=== PATIENT | male | born 1950 | race Caucasian/White ===

== ENCOUNTER → 2024-01-23 10:52 | Outpatient (REF) | payer MEDICARE, OTHER, SELFPAY | LOC: HWRAD 10:52 | PROVIDERS: ATTENDING PHYSICIAN Urology; FAMILY PHYSICIAN Internal Medicine; REFERRING PHYSICIAN Internal Medicine Rheumatology | DX: M81.0 Age-related osteoporosis without current pathological fracture (principal); N20.0 Calculus of kidney; D41.01 Neoplasm of uncertain behavior of right kidney | CPT/HCPCS: 74018; 76775; 77080 ==

== ENCOUNTER 2024-02-02 13:38 | Emergency (ER) | payer MEDICARE, OTHER, SELFPAY ==
[2024-02-02 13:40] VITALS: BP 114/74; BMI 28.0
--- NOTE | 2024-02-02 13:53 | ED.GENMED ---
History of Present Illness
General
Chief Complaint: Fainting/Passed Out
Time Seen by Provider: 02/02/24 13:40
History of Present Illness
History of Present Illness:
73-year-old male with history of hyperlipidemia and chronic bradycardia presenting to the emergency department after syncopal episode. Patient's status post a right third and fourth finger DIP joint fusion at outpatient surgical center this
morning. Patient reports that he got a sedative, as well as local anesthesia. He got home from the surgery, felt cold, sat at the kitchen table while his grabbed him a sweater. He subsequently then had a witnessed syncopal episode. Per
, was out about a minute. Patient notes that he fell out of it for the next 15 minutes. Reports history of a syncopal episode several years ago, was admitted and had extensive workup, thought to be secondary to a vasovagal etiology. Patient
denies any prodromal chest pain or difficulty breathing. He reports that he felt like he was going to pass out, felt very nauseous, and then lost consciousness. No report of any head injury. Does report that he did not sleep very much last night
and has not eaten today. Denies any present chest pain, difficulty breathing, dizziness, lightheadedness, visual changes, fever or recent illness. Per medics, patient was hypotensive and bradycardic on arrival, however bradycardia per patient is
chronic denies additional acute medical complaints
Phy Exam
Physical Exam
Physical Exam:
General: Well-appearing, no clinical signs of dehydration, nontoxic and in no acute distress
HEENT: protecting airway, pupils equal and reactive, extraocular movements intact
Neck: appears supple
CV: Normal heart rate, regular rhythm, no evidence of cyanosis
Resp: No accessory muscle use, no increased work of breathing, lungs clear to auscultation bilaterally
Abd: Soft and non-distended, no tenderness to palpation
Extremities: No deformities, no swelling, no erythema
Neuro: alert, no focal neurologic deficit
: deferred
Rectal: deferred
Psych: Normal affect
Skin: Intact
Course
Orders/Labs/Results
Orders:
Orders
02/02/24 13:45
Electrocardiogram (*1) Urgent
Reason for Study: Chest Pain
EKG- Treatment ONCE
02/02/24 13:52
Complete Blood Count/With Diff Urgent
Comprehensive Metabolic Panel Urgent
Troponin I Urgent
02/02/24 13:53
0.9% Sodium Chloride 1000 ml [Nss] 1,000 ml IV BOLUS
02/02/24 15:12
Tramadol HCl [Ultram] 50 mg PO NOW STA
Abnormal Lab Results
02/02/24
13:52
RBC 4.44 L 10^6/uL
(4.70-6.10)
MCV 98.0 H fL
(80.0-94.0)
MCH 31.1 H pg
(27.0-31.0)
MCHC 31.7 L g/dL
(33.0-37.0)
Absolute Lymphs (auto) 1.0 L 10^3/uL
(1.2-3.4)
Neutrophils % 79.8 H %
(42.2-75.2)
Lymphocytes % 12.5 L %
(20.5-51.1)
Glucose 105 H mg/dl
(70-99)
Total Protein 6.2 L g/dl
(6.3-8.2)
02/02/24 13:52
02/02/24 13:52
Vital Signs
Initial and Last Documented VS:
Initial Vital Signs
Temp Pulse Resp BP Pulse Ox
97.9 F 58 16 114/74 100
02/02/24 13:40 02/02/24 13:40 02/02/24 13:40 02/02/24 13:40 02/02/24 13:40
Last Documented Vital Signs
Temp Pulse Resp BP Pulse Ox
97.9 F 56 16 122/66 99
02/02/24 13:40 02/02/24 15:00 02/02/24 13:40 02/02/24 15:00 02/02/24 15:00
MDM/Problems Addressed
MDM/Problems Addressed:
73-year-old male with history of hyperlipidemia presenting after syncopal episode. Vital signs are normal.
On exam, patient is very well-appearing, awake, alert, oriented. No physical signs of trauma. Unremarkable cardiac and pulmonary exam. No focal neurologic deficits. Do suspect possible vasovagal quality to patient's symptoms, notes that did not
sleep very much last night due to surgical procedure this morning. In addition he has not eaten anything at all today, and had sedated medications prior to arrival. Vital signs at this time are stable. Will screen with EKG. will also screen with
laboratory analysis including electrolyte panel, troponin. Will start patient IV fluids in the setting of volume depletion. Will continue to closely monitor.
15:15 - Labs are unremarkable. Reassessed patient remains hemodynamically stable. EKG is nonischemic, no arrhythmia. Patient reports that he is feeling better. At this time feel that he is stable for discharge, however with close interval
follow-up primary care doctor. Advised continued rest and oral hydration. Return precautions discussed and patient verbalized understanding
*EKG
Interpreted by ED Provider?: Yes
EKG Intrepretation Date: 02/02/24
EKG Intrepretation Time: 15:15
Interpretation: normal
Comparison EKG: no comparison EKG present
Heart Rate: 61
Rate: normal
Rhythm: sinus
[place]: normal axis
Interval: normal interval
QRS Pattern: normal QRS
Ischemia: no ischemia
*Critical Care Note
Total Time (30-74mins, 75-104mins- exclusive of procedures): Not Applicable
ED Attending Note
-
Portions of this chart may have been created with voice recognition software.� Occasional wrong word or��sound alike� substitutions may have occurred due to the inherent limitations of voice recognition software.
Discharge Plan
Departure
Patient Disposition: Home (Routine Discharge)
Date of Disposition: 02/02/24
Time of Disposition: 15:13
Patient with high blood pressure during this ER visit?: No
Condition: Good
Discharge Problem:
Syncope
Instructions: Syncope (Fainting) (DC), Vasovagal Response (DC)
Prescriptions:
No Action
gabapentin 600 mg tablet
600 mg PO QID
prednisone 5 mg tablet
5 mg PO DAILY
methotrexate sodium 2.5 mg tablet
2.5 mg PO . DIRECTED
Rx Instructions:
TAKE 2 TABLETS BY MOUTH Friday AND 2 TABS BY MOUTH FRIDAY EVENING EACH WEEK
folic acid 1 mg tablet
1 mg PO DAILY
albuterol sulfate 90 mcg/actuation HFA aerosol inhaler
2 puff INHALATION R Q4 PRN (Reason: sob)
ezetimibe 10 mg tablet
10 mg PO DAILY
rosuvastatin 5 mg tablet
5 mg PO DAILY
fluticasone propion-salmeterol 232-14 mcg/actuation aerosol powdr breath activated
1 inh INHALATION R BID
hydromorphone [Dilaudid] 4 mg tablet
4 mg PO Q6H PRN (Reason: Pain) Qty: 30 0RF
Activity Restrictions/Additional Instructions:
You were seen in the emergency department for a syncopal episode
You were found to have normal laboratory analysis, EKG. We suspect that you had a vasovagal syncopal episode.
Please follow-up closely with your primary care physician.
Return to the emergency department for any worsening of your symptoms, or any development of chest pain, difficulty breathing, abdominal pain with persistent vomiting and inability to tolerate food or liquid by mouth (concern for dehydration),
weakness, headache or confusion, fever greater than 100.4, or any additional symptoms that are concerning to you.
Thank you for choosing [facility].
Interventions
Interventions:
*Risk Screen - Suicide Last Done: 02/02/24 13:40
*General Assessment Last Done: 02/02/24 13:40
*Neglect/Abuse Screening Last Done: 02/02/24 13:40
ED- Fall Risk Assessment Last Done: 02/02/24 13:40
*ED COVID-19 Vaccine History Last Done: 02/02/24 13:40
ED- Cardiac Assessment Last Done: 02/02/24 13:40
ED- Neurological Assessment Last Done: 02/02/24 13:40
Discharge Date and Time
Print Language: HUNGARIAN
[2024-02-02 14:02] LABS: % Basophils 0.3 % (0-2); % Eosinophils 1.2 % (0-6); % Immature Granulocytes 0.3 % (0-0.5); % Lymphocytes 12.5 % (20.5-51.1); % Monocytes 5.9 % (1.7-9.3); % Neutrophils 79.8 % (42.2-75.2); Absolute Eosinophils 0.1 10^3/uL (0-0.7); Absolute Monocytes 0.5 10^3/uL (0.1-0.6); Absolute Neutrophils 6.2 10^3/uL (1.4-6.5); Hematocrit 43.5 % (39.0-52.0); Hemoglobin 13.8 g/dL (13.0-18.0); Mean Corp Hgb Conc. 31.7 g/dL (33.0-37.0); Mean Corpuscular Hgb 31.1 pg (27.0-31.0); Mean Platelet Volume 9.5 fL (7.4-10.4); Nucleated Red Blood Cells % 0 % (-); Platelet Count 157 10^3/uL (130-400); Red Blood Cell Count 4.44 10^6/uL (4.70-6.10); Red Cell Dist. Width 13.6 % (11.5-14.5); White Blood Cell Count 7.8 10^3/uL (4.8-10.8)
[2024-02-02] MEDS: NSS 1000 IV (14:04)
[2024-02-02 14:17] LABS: ALT (SGPT) 25 U/L (0-50); AST (SGOT) 30 U/L (17-59); Albumin 3.9 g/dl (3.5-5.0); Alkaline Phosphatase 52 U/L (38-126); Blood Urea Nitrogen 19 mg/dl (9-20); Calcium 8.8 mg/dl (8.4-10.2); Carbon Dioxide 27 mmol/L (22-30); Chloride 106 mmol/L (98-107); Estimated Creatinine Clearance 86 ml/min; Glucose 105 mg/dl (70-99); Sodium 143 mmol/L (135-145); Total Bilirubin 0.5 mg/dl (0.2-1.3); Total Protein 6.2 g/dl (6.3-8.2); eGFR > 60.00
[2024-02-02 14:29] LABS: Troponin I < 0.012 ng/ml
[2024-02-02 14:30] VITALS: BP 128/71
[2024-02-02 15:00] VITALS: BP 122/66
[2024-02-02] MEDS: ULTRAM 50 MG PO (15:19)
== END 2024-02-02 15:39 | disposition home or self-care (01) ==
LOC: EMR 13:38
PROVIDERS: EMERGENCY PHYSICIAN Student in an Organized Health Care Education/Training Program
DX: R55 Syncope and collapse (principal); R00.1 Bradycardia, unspecified
CPT/HCPCS: 99283; 96360; 80053; 84484; 85025; 93005

== ENCOUNTER → 2024-10-06 11:49 | Outpatient (REF) | payer MEDICARE, OTHER, SELFPAY | LOC: RAD 11:49 | PROVIDERS: ATTENDING PHYSICIAN Internal Medicine Rheumatology; FAMILY PHYSICIAN Internal Medicine | DX: M12.39 Palindromic rheumatism, multiple sites (principal); R05.9 Cough, unspecified | CPT/HCPCS: 71046 ==

== ENCOUNTER → 2024-12-20 12:23 | Outpatient (REF) | payer MEDICARE, OTHER, SELFPAY | LOC: HWRAD 12:23 | PROVIDERS: ATTENDING PHYSICIAN Urology; FAMILY PHYSICIAN Internal Medicine | DX: N20.0 Calculus of kidney (principal) | CPT/HCPCS: 74018; 76775 ==